=== PATIENT | female | born 1970 | race Caucasian/White ===

== ENCOUNTER → 2022-04-27 | Outpatient (CLI) | payer BC ==
--- NOTE | 2022-04-28 08:07 | MM ---
Reason for Exam: Screening (asymptomatic). Baseline mammogram. Patient History: Menarche at age 13. First Full-Term at age 16. Postmenopausal. Maternal aunt had ovarian cancer, age 32. Mother had breast cancer, age 38. Risk Values: Rina 5 year model risk: 1.9%. NCI Lifetime model risk: 14.0%. Prior Study Comparison: Patient's first Mammogram. Tissue Density: The breast tissue is heterogeneously dense. This may lower the sensitivity of mammography. Findings: Analyzed By CAD. There is no suspicious group of microcalcifications or new suspicious mass in either breast. Overall Assessment: Negative, BI-RAD 1 Management: Screening Mammogram of both breasts in 1 year. A clinical breast exam by your physician is recommended on an annual basis and results should be correlated with mammographic findings. Electronically signed and approved by: Gavino Vincent M.D. Radiologis
== END | disposition home or self-care (01) ==
LOC: RADMAMWWP 15:48
PROVIDERS: ATTEND Family Medicine
DX: Z12.31 Encounter for screening mammogram for malignant neoplasm of breast (principal); Z78.0 Asymptomatic menopausal state; Z80.3 Family history of malignant neoplasm of breast
CPT/HCPCS: 77063; 77067

== ENCOUNTER → 2023-05-22 | Outpatient (CLI) | payer BC ==
--- NOTE | 2023-05-22 12:13 | CTL ---
EXAMINATION TYPE: CT Low Dose Lung DATE OF EXAM ORDERED: 05/22/2023 HISTORY: Nicotine dependence. Lung cancer screening CT DLP: [address]DI: 2.07 mGy Automated exposure control for dose reduction was used. SCREENING VISIT: Initial COMPARISON: None TECHNIQUE: Low dose computed tomography scan was performed through the chest at 1 mm thick sections a nd reconstructed images in the coronal plane at [address] DIAGNOSTIC QUALITY: Satisfactory FINDINGS: LUNG NODULES: None. 1. There is a small area 1.0 cm of pneumonitis within the left lower lung field. Series 4 image 209 LUNGS: COPD: Severity: None Fibrosis: Severity: None Lymph nodes: None Other findings: None RIGHT PLEURAL SPACE: Effusion: None Calcification: None Thickening: None Pneumothorax: None LEFT PLEURAL SPACE: Effusion: None Calcification: None Thickening: None Pneumothorax: None HEART: Heart Size: Normal Coronary calcification: None Pericardial effusion: None OTHER FINDINGS: Upper abdomen: Normal Bony thorax: Normal Supraclavicular region: Normal Other: Ascending thoracic aorta at the level the main pulmonary artery measures 3.1 cm. The main pul monary artery at the bifurcation measures 2.8 cm. IMPRESSION: Benign appearance FOLLOW UP CT CHEST RECOMMENDATION: Follow-up low-dose CT chest one year CT LUNG RAD: Lung-Rad 2 Benign Appearance or Behavior
--- NOTE | 2023-05-24 08:51 | MM ---
Reason for Exam: Screening (asymptomatic). Last mammogram was performed 1 year(s) and 1 month(s) ago. Patient History: Menarche at age 13. First Full-Term at age 16. Postmenopausal. Maternal aunt had ovarian cancer, age 32. Mother had breast cancer, age 38. Risk Values: Rina 5 year model risk: 1.9%. NCI Lifetime model risk: 13.8%. Physical Findings: Physical Exam Performed After Images Prior Study Comparison: 04/27/2022 Bilateral MG 3D screening mammo w/cad, [facility]. Tissue Density: There are scattered areas of fibroglandular density. Findings: Analyzed By CAD. Right breast: There is no suspicious group of microcalcifications or new suspicious mass. Left breast: There is no suspicious group of microcalcifications or new suspicious mass. Overall Assessment: Negative, BI-RAD 1 Management: Screening Mammogram of both breasts in [address] [facility] will attempt to contact patient to return for supplemental views and ultrasound if indicated. Patient should continue monthly self-breast exams. A clinical breast exam by your physician is recommended on an annual basis. This exam should not preclude additional follow-up of suspicious palpable abnormalities. Note on Rina scores and lifetime risk: 1. A Rina score greater than 3% is considered moderate risk. If this is the case, consider specialist referral to assess eligibility for a risk reducing agent. 2. If overall lifetime risk for the development of breast cancer is 20% or higher, the patient may qualify for future screening with alternating mammogram and breast MRI. Electronically signed and approved by: Raguh Brannon DO
== END | disposition home or self-care (01) ==
LOC: RADCTMAIN 07:01
PROVIDERS: ATTEND Family Medicine
DX: Z12.31 Encounter for screening mammogram for malignant neoplasm of breast (principal); Z12.2 Encounter for screening for malignant neoplasm of respiratory organs; F17.210 Nicotine dependence, cigarettes, uncomplicated; Z80.3 Family history of malignant neoplasm of breast; Z78.0 Asymptomatic menopausal state
CPT/HCPCS: 71271; 77063; 77067

== ENCOUNTER → 2024-06-23 | Outpatient (CLI) | payer BC ==
--- NOTE | 2024-06-23 08:17 | MM ---
Reason for Exam: Screening (asymptomatic). Last mammogram was performed 1 year(s) and 1 month(s) ago. Patient History: Menarche at age 13. First Full-Term at age 16. Postmenopausal. Maternal aunt had ovarian cancer, age 32. Mother had breast cancer, age 38. Risk Values: Rina 5 year model risk: 2.0%. NCI Lifetime model risk: 13.5%. Prior Study Comparison: 04/27/2022 Bilateral MG 3D screening mammo w/cad, [facility]. 05/22/2023 Bilateral MG 3D screening mammo w/cad, [facility]. Tissue Density: There are scattered areas of fibroglandular density. Findings: Analyzed By CAD. Right breast: There is no suspicious group of microcalcifications or new suspicious mass. Left breast: There is no suspicious group of microcalcifications or new suspicious mass. Overall Assessment: Negative, BI-RAD 1 Management: Screening Mammogram of both breasts in [address] [facility] will attempt to contact patient to return for supplemental views and ultrasound if indicated. Patient should continue monthly self-breast exams. A clinical breast exam by your physician is recommended on an annual basis. This exam should not preclude additional follow-up of suspicious palpable abnormalities. Note on Rina scores and lifetime risk: 1. A Rina score greater than 3% is considered moderate risk. If this is the case, consider specialist referral to assess eligibility for a risk reducing agent. 2. If overall lifetime risk for the development of breast cancer is 20% or higher, the patient may qualify for future screening with alternating mammogram and breast MRI. [facility], , 06/23/2024 8:15 AM. Electronically signed and approved by: Raghu Brannon DO
--- NOTE | 2024-06-23 13:21 | CTL ---
EXAMINATION TYPE: CT Low Dose Lung DATE OF EXAM: 06/23/2024 7:28 AM COMPARISON: 05/22/2023 CLINICAL INDICATION: Female, 53 years old with history of Z12.31 SCREEN Z122 SCREEN [id number] CURR SMOKE R, current smoker, 1 pack a day x 30 years, History of tobacco use. TECHNIQUE: Low dose computed tomography scan was performed through the chest at 1 mm thick sections a nd reconstructed images in multiple planes at 1 mm and [address] DLP: 74.5 mGycm, CT CTDI: 1.9 mGy, Automated exposure control for dose reduction was used. CT DIAGNOSTIC QUALITY: Satisfactory FINDINGS: The heart is normal size with trace basilar pericardial fluid. Scattered mild LAD and circumflex justina nary artery calcifications are present. Aorta normal caliber with conventional arch vessel branching anatomy. No thoracic lymphadenopathy. Mild diffuse bronchial wall thickening. Mild emphysematous change. Mild biapical pleural parenchymal scarring. No consolidation or pleural effusion. * Ground glass nodule left lower lobe currently measuring 1.3 cm versus 9 mm, previously. There is n ow a soft tissue component measuring 6 mm within the nodule. * 5 mm left basilar pulmonary nodule unchanged. * 4 mm right mid lung pulmonary nodule, axial image 183 unchanged. * 4 mm anterior right midlung pulmonary nodule, axial image 183 is unchanged. Visualized upper abdomen shows no gross abnormality. Bones: No osseous destructive process. IMPRESSION: 1. LungRADS Category 4A (suspicious, 5-15% chance of malignancy); redemonstrated left lower lobe grou ndglass nodule though gradually enlarging now 1.3 cm versus 9 mm previously and now with a solid 6 mm component. Developing neoplasm not excluded. 3 month follow-up low-dose CT chest to reassess. 2. COPD with mild emphysema. Other scattered 5 mm smaller nodules remain unchanged. Recommend smoking cessation. CT LUNG RAD AND CT CHEST RECOMMENDATION: Lung-Rad 4A Suspicious: Follow-up 3 month LDCT or PET/CT may be used when there is a > 8 mm solid component. S Modifier (other clinically significant findings): None [facility], Workstation: [id number], 06/23/2024 1:19 PM
== END | disposition home or self-care (01) ==
LOC: RADCTMAIN 07:08
PROVIDERS: ATTEND Family Medicine
DX: Z12.31 Encounter for screening mammogram for malignant neoplasm of breast (principal); Z12.2 Encounter for screening for malignant neoplasm of respiratory organs; F17.210 Nicotine dependence, cigarettes, uncomplicated; R92.323 Mammographic fibroglandular density, bilateral breasts; R91.1 Solitary pulmonary nodule; J44.9 Chronic obstructive pulmonary disease, unspecified; J43.9 Emphysema, unspecified; Z78.0 Asymptomatic menopausal state; Z80.3 Family history of malignant neoplasm of breast
CPT/HCPCS: 71271; 77063; 77067

== ENCOUNTER → 2024-08-22 | Outpatient (CLI) | payer BC ==
--- NOTE | 2024-08-22 11:30 | PE ---
EXAMINATION TYPE: PET CT fusion skull to thigh DATE OF EXAM: 08/22/2024 CLINICAL INDICATION:Female, 53 years old with history of R91.8 SPN; TECHNIQUE: Following the intravenous administration of 9.75 mCi of F-18 FDG, whole body images are performed from the skull base to the Mid thigh. Images are reviewed on the computer in the coronal, axial, and sagittal planes. Reconstructed rotating images are created on independent workstation and reviewed on the computer. A non-contrast CT is performed in conjunction with the PET scan. Glucose level 90 mg/dL CT DLP: 474 mGycm, Automated exposure control for dose reduction was used. COMPARISON: CT 06/23/2024 , PET/CT None, MRI: None FINDINGS: Mediastinal SUV mean is 1.8. Hepatic parenchyma SUV mean is 2.4. SKULL BASE AND NECK: No suspicious radiotracer activity. CHEST, MEDIASTINUM, AND HILAR REGION: 13 mm left lower lobe nodule Max SUV 1.7. ABDOMEN AND PELVIS: No suspicious radiotracer activity. MUSCULOSKELETAL STRUCTURES: No suspicious radiotracer activity. OTHER CT: Moderate to large stool burden in the colon. Trace free fluid in the pelvis. IMPRESSION: Left lower lobe groundglass nodule measuring up to 13 mm with mild uptake concerning for early bronch ioloalveolar carcinoma. [facility], , 08/22/2024 11:28 AM
== END | disposition home or self-care (01) ==
LOC: RADPETMAIN 06:33
PROVIDERS: ATTEND Internal Medicine
DX: R91.8 Other nonspecific abnormal finding of lung field (principal)
CPT/HCPCS: 78815; A9552